=== PATIENT | female | born 1985 | race Caucasian/White ===

== ENCOUNTER 2023-04-26 07:51 | Inpatient (IN) ==
[2023-04-26] MEDS ORDERED: OXYTOCIN 30 UNITS/NSS 30 UNITS/500 ML BAG IV PRN ×3 (07:55→23:04)
[2023-04-26] MEDS ORDERED: LIDOCAINE 1% LOCAL 20 ML VIAL INFIL PRN (07:55)
--- NOTE | 2023-04-26 07:57 | History & Physical Report ---
Date of Service April 26, 2023 Assessment & Plan (1) Supervision of elderly primigravida: (2) Encounter for induction of labor: Plan bulb removed. Plan pitocin induction. arom when indicated. epidural early for patient to tolerate exams. fetus category one. Anticipate . Admission and Anticipated Discharge Date Admission Date: April 26, 2023 History of Present Illness Chief Complaint: iol Primary Care Provider: [facility] Patient is a 37yo with iup at 39 3/7 weeks who presents for iol for concern about stomach. Patient notes good fm, no lof/vb. She had a davidson catheter placed for cervical ripening last night. Patient had a cell free DNA test done and low risk. NOrmal echo. ON low dose asa for pet risks. The stomach looked large on ultrasound here. ON f/u ultrasound with mfm, the stomach looked normal or just slightly enlarged. No evidence of poly or obstruction. and Delivery Plans AMA *Weekly NST's @ 36 wks. Hypothyroid *TSH Q 4 wks. STEFAN at 24 week Flu shot given 03/11/23 - AL Dilated Stomach on US *MFM Consult (03/25/23) - alternating dilated and normal appearing stomach, 3w followup, wkly NST/DVP until then *39wk IOL per MFM OB Labs: Blood Type AB Positive 01/13/23 Antibody Screen NEGATIVE 01/13/23 Hemoglobin 11.8 g/dl (12.0-16.0) L 02/20/23 Hematocrit 34.1 % (37.0-47.0) L 02/20/23 Mean Corpuscular Volume 90.7 fL (80.0-100.0) 02/20/23 Platelet Count 220 K/uL (130-400) 02/20/23 Rubella IgG Antibody Immune (Immune) 01/13/23 Rapid Plasma Reagin Nonreactive (Nonreactive) 01/13/23 Hepatitis B Surface Antigen. NON-REACTIVE (NON-REACTIVE) 01/13/23 Hepatitis C Antibody (EIA) NON-REACTIVE (NON-REACTIVE) 01/13/23 HIV (1&2) Ag and Ab Confirmation NON-REACTIVE (NON-REACTIVE) 01/13/23 Glucose 1 Hour 50 gm Load 114 mg/dl (70-130) 02/09/23 OB Optional Labs: Chlamydia trachomatis RNA Not Detected (NotDetected) 01/13/23 Neisseria gonorrhoeae RNA Not Detected (NotDetected) 01/13/23 Thyroid Stimulating Hormone (TSH) 1.687 uIu/ml (0.300-4.500) 03/29/23 gbs negative. Allergies Allergy/AdvReac Type Severity Reaction Status Date / Time No Known Allergies Allergy Verified 04/25/23 19:33 Home Medications Medication Instructions Recorded Confirmed Type aspirin 81 mg tablet,delayed 81 mg PO DAILY 01/05/23 04/25/23 History release (Adult Low Dose Aspirin) levothyroxine 100 mcg capsule 0 mcg PO DAILY 01/05/23 04/25/23 History vit 168-iron 27 mg-folic 0 cap PO DAILY 01/05/23 04/25/23 History acid 800 mcg-omega3 235 mg capsule (One-A-Day -1) Patient History Medical History Hypothyroidism during No pertinent family history Surgical History No pertinent past surgical history Family History Other Hypertension Social History Smoking Status: Former smoker Do You Dip or Chew Tobacco: No; Hx Alcohol Use: No Hx Substance Use: No Preferred Language: Malay marital status: marital status details: Ladonna (friend) [phone] Current Living Situation: Alone Current Living Situation Comment: grad student current occupational status: 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 Physical Exam Constitutional: WD/WN, vitals as above Gastrointestinal (Abdomen): soft, gravid, nt Psychiatric: A+Ox3, euthymic affect Genitourinary: gentle tug on bulb and removed. cx--2+/75/-2, very difficult exam toco--mics efm--150s with mod variabiltiy, accels to 170s, no decels Coding Level of Care Code None Diagnoses Encounter for supervision of primigravida of advanced maternal age in third trimester O09.513 Trimester: third trimester Encounter for induction of labor Z34.90 (1) Supervision of elderly primigravida Trimester: third trimester Qualified Code(s): O09.513 - Supervision of elderly primigravida, third trimester
[2023-04-26 08:24] LABS: Hematocrit (blood only) 38.5 % (37.0-47.0); Hemoglobin 13.1 g/dl (12.0-16.0); Mean Corpuscular Volume 91.2 fL (80.0-100.0); Mean Platelet Volume 10.7 fL (9.4-12.4); Platelet Count 213 K/uL (130-400); RDW Coefficient of Variation 13.2 % (11.5-14.5); RDW Standard Deviation 43.8 fL (36.4-46.3); Red Blood Count 4.22 M/uL (4.20-5.40); White Blood Count 9.26 K/ul (4.8-10.8)
[2023-04-26] MEDS: LACTATED RINGER'S 1,000 ML IV PRN ×4 (09:30→21:50)
[2023-04-26] MEDS ORDERED: fentANYL 2 MCG/ML BUPIVacaine 0.125%-NSS 100ML BAG ONE (11:11)
[2023-04-26] MEDS ORDERED: ePHEDrine sulfate 50 MG/ML AMP ONE (11:11)
[2023-04-26] MEDS ORDERED: fentaNYL citrate PF 100 MCG/2 ML VIAL ONE (11:11)
[2023-04-26] MEDS ORDERED: SODIUM CHLORIDE 0.9% PF INJ 10 ML VIAL ONE (11:12)
[2023-04-26] MEDS ORDERED: LIDOCAINE 2%/EPINEPHRINE 1:200,000 20 ML PF ONE (11:12)
[2023-04-26] MEDS ORDERED: BUPIVACAINE 0.25% PF 30 ML VIAL ONE (11:12)
--- NOTE | 2023-04-26 11:29 | Anesthesiology Consultation ---
Date of Service April 26, 2023 Assessment & Plan Chart Review Chart Review: Patient NOT seen in Pre Admission Testing and Acceptable Risk for Labor Epidural Consults Requested none ASA ASA2 Proposed Anesthesia Anesthesia Type: Labor Epidural Risk / Benefits Reviewed With: PT / POA / Parent / Guardian, Accepts Plan and Informed Consent Obtained History Height/Weight Height: 5 ft 3 in Weight: 75.296 kg Allergies Allergy/AdvReac Type Severity Reaction Status Date / Time No Known Allergies Allergy Verified 04/26/23 08:42 Medications Home Medications Medication Instructions Recorded Confirmed Last Taken aspirin 81 mg tablet,delayed 81 mg PO DAILY 01/05/23 04/26/23 04/25/23 release (Adult Low Dose Aspirin) levothyroxine 100 mcg capsule 0 mcg PO DAILY 01/05/23 04/26/23 04/25/23 06:00 vit 168-iron 27 mg-folic 0 cap PO DAILY 01/05/23 04/26/23 04/25/23 14:00 acid 800 mcg-omega3 235 mg capsule (One-A-Day -1) Active Medications Generic Name Dose Route Start Last Admin Trade Name Freq PRN Reason Stop Dose Admin Oxytocin 30 units in 500 mls @ 7 mls/hr 04/26/23 07:55 04/26/23 11:00 Pitocin 30 Units/Nss IV 04/28/23 07:54 0.42 units/hr .Q24H PRN 7 mls/hr Labor Induction/Augmentation Titration Protocol 0.42 UNITS/HR Lactated Ringer's 1,000 mls @ 125 mls/hr 04/26/23 07:55 04/26/23 11:10 Lr IV 04/28/23 07:54 999 mls/hr .Q8H PRN Infusion L&D Protocol Protocol NPO Date Last Intake of Fluids: 04/26/23 Time Last Intake of Fluids: 11:00 Date Last Intake of Solids: 04/26/23 Time Last Intake of Solids: 07:00 Past Medical History Medical History No pertinent family history Hypothyroidism during Exercise / Class Metabolic Activity 1 > 8 Run/Swim/Ski/Tennis Past Family History Family History Other Hypertension Past Surgical History Surgical History No pertinent past surgical history Past Anesthesia History No Hx of Anesthesia Complications and No Family Hx of Anesthesia Complications History of PONV No Hx of PONV and No Hx of Motion Sickness Social History Smoking Status: Light tobacco smoker Do You Dip or Chew Tobacco: No Hx Alcohol Use: No Hx Substance Use: No substance use type: does not use Review of Systems ROS Unobtainable: All systems reviewed & are unremarkable except as noted in HPI & below Physical Exam Vital Signs Last Vital Signs Temp 36.8 C 04/26/23 09:40 Pulse 78 04/26/23 10:31 Resp 18 04/26/23 09:40 BP 123/79 04/26/23 10:31 Constitutional no acute distress ENMT Mouth: no TMJ abnormality Thyromental Distance: > or= 3.5 Finger Breadths Mallampati Class: II Neck normal visual inspection and trachea midline; neck extension not limited Respiratory normal respiratory effort Auscultation: lungs clear to auscultation bilaterally Cardiovascular Rate/Rhythm: regular rate and regular rhythm Heart Sounds: no murmur Musculoskeletal Spine: normal cervical ROM Extremities: full ROM of extremities Neurologic moves all extremities Psychiatric Orientation: alert and oriented x 3 Testing Laboratory Results 04/26/23 08:03 Electrocardiogram Findings: no ST @
[2023-04-26] MEDS ORDERED: diphenhydrAMINE 50 MG/ML VIAL IV PRN (11:55)
[2023-04-26] MEDS ORDERED: BUPIVACAINE 0.25% PF 30 ML VIAL EPI STA (11:55)
[2023-04-26] MEDS ORDERED: ePHEDrine sulfate 50 MG/ML AMP IV PRN (11:55)
[2023-04-26] MEDS ORDERED: NALOXONE HCL 1 MG in SODIUM CHLORIDE 0.9% 1,000 ML IV PRN (11:55)
[2023-04-26] MEDS ORDERED: fentaNYL citrate PF 100 MCG/2 ML VIAL EPI PRN (11:55)
[2023-04-26] MEDS ORDERED: LIDOCAINE 2% MPF LOCAL 5 ML VIAL EPI PRN (11:55)
[2023-04-26] MEDS ORDERED: SODIUM CHLORIDE 0.9% PF INJ 10 ML VIAL EPI PRN (11:55)
[2023-04-26] MEDS ORDERED: NALBUPHINE HCL 5 MG in SYRINGE 0 ML IV PRN (11:55)
[2023-04-26] MEDS ORDERED: BUPIVACAINE 0.25% PF 30 ML VIAL EPI PRN (11:55)
[2023-04-26] MEDS ORDERED: fentaNYL citrate PF 100 MCG/2 ML VIAL EPI STA (11:55)
[2023-04-26] MEDS ORDERED: fentANYL 2 MCG/ML BUPIVacaine 0.125%-NSS 100ML BAG EPI PRN (11:55)
[2023-04-26] MEDS ORDERED: LIDOCAINE 2%/EPINEPHRINE 1:200,000 20 ML PF EPI STA (11:55)
[2023-04-26] MEDS ORDERED: NALOXONE HCL 0.4 MG/1 ML VIAL/CARP IV PRN (11:55)
[2023-04-26] MEDS ORDERED: SODIUM CHLORIDE 0.9% PF INJ 10 ML VIAL EPI STA (11:55)
[2023-04-26] MEDS ORDERED: ROPIVACAINE 0.5% PF 5 MG/ML 20 ML VIAL EPI PRN (11:55)
--- NOTE | 2023-04-26 12:54 | Labor Progress Brief Note ---
Date of Service April 26, 2023 Subjective pt comfortable with epidural. aware i am taking over care. Assessment & Plan (1) Encounter for induction of labor: (2) Supervision of elderly primigravida: Trimester: third trimester Qualified Code(s): O09.513 - Supervision of elderly primigravida, third trimester Plan will see how arom helps labor pattern. c/w pitocin. fhts categ 1. Admission and Anticipated Discharge Date Admission Date: April 26, 2023 Physical Exam Genitourinary: Manual OB Exam: + cervical dilation (2-3), + cervical effacement 50%, + station -2 and + amniotic fluid (AROM) clear Results & Data Vital Signs (Past 12 Hours) Vital Signs Temp Pulse Resp BP Pulse Ox 04/26/23 12:49 98 04/26/23 12:49 82 04/26/23 12:47 82 04/26/23 12:47 117/74 04/26/23 12:44 97 04/26/23 12:44 85 04/26/23 12:39 100 04/26/23 12:39 94 H 04/26/23 12:34 100 04/26/23 12:34 81 04/26/23 12:32 84 04/26/23 12:32 116/59 L 04/26/23 12:29 100 04/26/23 12:29 83 04/26/23 12:24 100 04/26/23 12:24 82 04/26/23 12:19 100 04/26/23 12:19 87 04/26/23 12:16 85 04/26/23 12:16 110/64 04/26/23 12:14 99 04/26/23 12:14 93 H 04/26/23 12:09 97 04/26/23 12:09 91 H 04/26/23 12:06 83 04/26/23 12:06 108/61 04/26/23 12:05 80 04/26/23 12:05 105/6 L 04/26/23 12:04 97 04/26/23 12:04 78 04/26/23 12:01 88 04/26/23 12:01 94/57 L 04/26/23 11:59 98 04/26/23 11:59 81 04/26/23 11:58 83 04/26/23 11:58 89/51 L 04/26/23 11:56 102 H 04/26/23 11:56 90/53 L 04/26/23 11:54 99 04/26/23 11:54 112 H 04/26/23 11:53 129 H 04/26/23 11:53 118/65 04/26/23 11:50 90 04/26/23 11:50 80/43 L 04/26/23 11:49 99 04/26/23 11:49 86 04/26/23 11:49 83/45 L 04/26/23 11:46 99 H 04/26/23 11:46 121/66 04/26/23 11:44 99 04/26/23 11:44 100 H 04/26/23 11:44 85 04/26/23 11:44 115/66 04/26/23 11:39 99 04/26/23 11:39 84 04/26/23 11:36 91 04/26/23 11:36 108 H 04/26/23 11:34 100 04/26/23 11:34 86 04/26/23 10:31 78 04/26/23 10:31 123/79 04/26/23 09:41 87 04/26/23 09:41 116/72 04/26/23 09:40 18 04/26/23 09:40 98.2 F 18 04/26/23 08:45 98.2 F 18 04/26/23 08:07 94 H 123/78 04/26/23 08:06 18 04/26/23 08:06 98.2 F 18 Coding Level of Care Code None Diagnoses Encounter for induction of labor Z34.90 Encounter for supervision of primigravida of advanced maternal age in third trimester O09.513 Trimester: third trimester
--- NOTE | 2023-04-26 15:37 | Labor Progress Brief Note ---
Date of Service April 26, 2023 Subjective comfortable with epidural Assessment & Plan (1) Encounter for induction of labor: Plan need to cont to increase pit to improve labor pattern. fhts categ 1. Admission and Anticipated Discharge Date Admission Date: April 26, 2023 Physical Exam Constitutional: WD/WN, vitals as above Genitourinary: Manual OB Exam: + cervical dilation 3 cm, + cervical effacement 50% and + station -2 OB Exam Monitor Tracing: + external FHT monitor used, + external uterine monitor used (q2-4 pit at 15), + category I and + normal FHT variability Results & Data Vital Signs (Past 12 Hours) Vital Signs Temp Pulse Resp BP Pulse Ox 04/26/23 15:34 99 04/26/23 15:34 89 04/26/23 15:32 93 H 04/26/23 15:32 122/79 04/26/23 15:29 99 04/26/23 15:29 98 H 04/26/23 15:24 96 04/26/23 15:24 94 H 04/26/23 15:19 100 04/26/23 15:19 75 04/26/23 15:18 77 04/26/23 15:18 131/74 04/26/23 15:14 98 04/26/23 15:14 88 04/26/23 15:09 100 04/26/23 15:09 80 04/26/23 15:04 99 04/26/23 15:04 81 04/26/23 15:02 86 04/26/23 15:02 127/76 04/26/23 14:59 99 04/26/23 14:59 84 04/26/23 14:54 99 04/26/23 14:54 90 04/26/23 14:49 99 04/26/23 14:49 91 H 04/26/23 14:46 88 04/26/23 14:46 126/84 04/26/23 14:44 100 04/26/23 14:44 93 H 04/26/23 14:39 100 04/26/23 14:39 84 04/26/23 14:34 100 04/26/23 14:34 89 04/26/23 14:31 79 04/26/23 14:31 125/74 04/26/23 14:29 100 04/26/23 14:29 80 04/26/23 14:24 100 04/26/23 14:24 86 04/26/23 14:19 99 04/26/23 14:19 80 04/26/23 14:17 79 04/26/23 14:17 119/64 04/26/23 14:14 99 04/26/23 14:14 79 04/26/23 14:09 97 04/26/23 14:09 85 04/26/23 14:04 98 04/26/23 14:04 81 04/26/23 14:01 16 04/26/23 14:01 98.2 F 16 04/26/23 14:01 76 04/26/23 14:01 121/69 04/26/23 13:59 100 04/26/23 13:59 78 04/26/23 13:54 97 04/26/23 13:54 103 H 04/26/23 13:49 96 04/26/23 13:49 80 04/26/23 13:46 76 04/26/23 13:46 119/66 04/26/23 13:44 96 04/26/23 13:44 76 04/26/23 13:39 96 04/26/23 13:39 75 04/26/23 13:34 97 04/26/23 13:34 74 04/26/23 13:32 71 04/26/23 13:32 117/67 04/26/23 13:29 96 04/26/23 13:29 72 04/26/23 13:24 99 04/26/23 13:24 75 04/26/23 13:19 97 04/26/23 13:19 76 04/26/23 13:17 78 04/26/23 13:17 111/67 04/26/23 13:14 96 04/26/23 13:14 78 04/26/23 13:09 99 04/26/23 13:09 74 04/26/23 13:04 98 04/26/23 13:04 79 04/26/23 13:02 79 04/26/23 13:02 119/68 04/26/23 13:01 18 04/26/23 13:01 98.2 F 18 04/26/23 12:59 100 04/26/23 12:59 81 04/26/23 12:54 98 04/26/23 12:54 81 04/26/23 12:49 98 04/26/23 12:49 82 04/26/23 12:47 82 04/26/23 12:47 117/74 04/26/23 12:44 97 04/26/23 12:44 85 04/26/23 12:39 100 04/26/23 12:39 94 H 04/26/23 12:34 100 04/26/23 12:34 81 04/26/23 12:32 84 04/26/23 12:32 116/59 L 04/26/23 12:29 100 04/26/23 12:29 83 04/26/23 12:24 100 04/26/23 12:24 82 04/26/23 12:19 100 04/26/23 12:19 87 04/26/23 12:16 85 04/26/23 12:16 110/64 04/26/23 12:14 99 04/26/23 12:14 93 H 04/26/23 12:09 97 04/26/23 12:09 91 H 04/26/23 12:06 83 04/26/23 12:06 108/61 04/26/23 12:05 80 04/26/23 12:05 105/6 L 04/26/23 12:04 97 04/26/23 12:04 78 04/26/23 12:01 88 04/26/23 12:01 94/57 L 04/26/23 11:59 98 04/26/23 11:59 81 04/26/23 11:58 83 04/26/23 11:58 89/51 L 04/26/23 11:56 102 H 04/26/23 11:56 90/53 L 04/26/23 11:54 99 04/26/23 11:54 112 H 04/26/23 11:53 129 H 04/26/23 11:53 118/65 04/26/23 11:50 90 04/26/23 11:50 80/43 L 04/26/23 11:49 99 04/26/23 11:49 86 04/26/23 11:49 83/45 L 04/26/23 11:46 99 H 04/26/23 11:46 121/66 04/26/23 11:44 99 04/26/23 11:44 100 H 04/26/23 11:44 85 04/26/23 11:44 115/66 04/26/23 11:39 99 04/26/23 11:39 84 04/26/23 11:36 91 04/26/23 11:36 108 H 04/26/23 11:34 100 04/26/23 11:34 86 04/26/23 10:31 78 04/26/23 10:31 123/79 04/26/23 09:41 87 04/26/23 09:41 116/72 04/26/23 09:40 18 04/26/23 09:40 98.2 F 18 04/26/23 08:45 98.2 F 18 04/26/23 08:07 94 H 123/78 04/26/23 08:06 18 04/26/23 08:06 98.2 F 18 Coding Level of Care Code None Diagnoses Encounter for induction of labor Z34.90
[2023-04-26] MEDS ORDERED: NURSING L&D Epidural Breakthrough Pain Update ONE (16:48)
--- NOTE | 2023-04-26 20:26 | Labor Progress Brief Note ---
Date of Service April 26, 2023 Subjective pt examined around 730pm, feeling rectal pressure Assessment & Plan (1) Encounter for induction of labor: Plan begin 2nd stage. fhts categ 1 Admission and Anticipated Discharge Date Admission Date: April 26, 2023 Physical Exam Genitourinary: Manual OB Exam: + cervical dilation 10 cm, + cervical effacement 100% and + station + 2 OB Exam Monitor Tracing: + external FHT monitor used, + external uterine monitor used (difficult to see pattern due to positioning), + category I and + normal FHT variability Results & Data Vital Signs (Past 12 Hours) Vital Signs Temp Pulse Resp BP Pulse Ox O2 Del Method 04/26/23 20:22 88 L 04/26/23 20:22 103 H 04/26/23 20:20 98 04/26/23 20:20 110 H 04/26/23 20:15 99 04/26/23 20:15 123 H 04/26/23 20:11 102 H 04/26/23 20:11 130/75 04/26/23 20:10 100 04/26/23 20:10 104 H 04/26/23 20:05 96 04/26/23 20:05 104 H 04/26/23 20:00 20 04/26/23 20:00 20 04/26/23 20:00 99 04/26/23 20:00 108 H 04/26/23 19:56 109 H 04/26/23 19:56 125/79 04/26/23 19:55 100 04/26/23 19:55 102 H 04/26/23 19:50 99 04/26/23 19:50 100 H 04/26/23 19:45 100 04/26/23 19:45 105 H 04/26/23 19:41 92 H 04/26/23 19:41 114/57 L 04/26/23 19:40 98 04/26/23 19:40 87 04/26/23 19:35 99 04/26/23 19:35 93 H 04/26/23 19:30 100 04/26/23 19:30 97 H 04/26/23 19:26 120 H 04/26/23 19:26 119/62 04/26/23 19:25 99 04/26/23 19:25 118 H 04/26/23 19:20 99 04/26/23 19:20 100 H 04/26/23 19:15 Room Air 04/26/23 19:15 100 04/26/23 19:15 102 H 04/26/23 19:10 18 04/26/23 19:10 98.1 F 18 04/26/23 19:10 100 04/26/23 19:10 96 H 04/26/23 19:10 100 H 04/26/23 19:10 131/78 04/26/23 19:07 101 H 04/26/23 19:07 171/125 H 04/26/23 19:05 99 04/26/23 19:05 91 H 04/26/23 19:00 98 04/26/23 19:00 91 H 04/26/23 18:55 99 04/26/23 18:55 97 H 04/26/23 18:50 100 04/26/23 18:50 85 04/26/23 18:47 88 04/26/23 18:47 125/84 04/26/23 18:45 99 04/26/23 18:45 90 04/26/23 18:40 99 04/26/23 18:40 96 H 04/26/23 18:35 100 04/26/23 18:35 88 04/26/23 18:32 203 H 04/26/23 18:32 135/93 04/26/23 18:30 100 04/26/23 18:30 90 04/26/23 18:24 99 04/26/23 18:24 94 H 04/26/23 18:19 99 04/26/23 18:19 84 04/26/23 18:17 81 04/26/23 18:17 121/66 04/26/23 18:14 100 04/26/23 18:14 80 04/26/23 18:09 100 04/26/23 18:09 86 04/26/23 18:04 100 04/26/23 18:04 82 04/26/23 18:02 83 04/26/23 18:02 126/73 04/26/23 18:00 18 04/26/23 18:00 98.2 F 18 04/26/23 17:59 99 04/26/23 17:59 81 04/26/23 17:54 100 04/26/23 17:54 76 04/26/23 17:49 99 12/18/23 17:49 79 04/26/23 17:49 131/58 L 04/26/23 17:48 92 04/26/23 17:48 81 04/26/23 17:44 100 04/26/23 17:44 85 04/26/23 17:39 100 04/26/23 17:39 84 04/26/23 17:34 100 04/26/23 17:34 73 04/26/23 17:31 82 04/26/23 17:31 113/67 04/26/23 17:29 100 04/26/23 17:29 81 04/26/23 17:26 77 04/26/23 17:26 117/66 04/26/23 17:24 99 04/26/23 17:24 81 04/26/23 17:19 98 04/26/23 17:19 84 04/26/23 17:18 93 H 04/26/23 17:18 144/116 H 04/26/23 17:14 94 04/26/23 17:14 71 04/26/23 17:09 96 04/26/23 17:09 91 H 04/26/23 17:04 100 04/26/23 17:04 78 04/26/23 17:03 89 04/26/23 17:03 118/58 L 04/26/23 16:59 99 04/26/23 16:59 75 04/26/23 16:54 97 04/26/23 16:54 78 04/26/23 16:49 97 04/26/23 16:49 80 04/26/23 16:47 74 04/26/23 16:47 109/56 L 04/26/23 16:44 18 04/26/23 16:44 98.2 F 18 04/26/23 16:44 96 04/26/23 16:44 76 04/26/23 16:39 96 04/26/23 16:39 80 04/26/23 16:34 98 04/26/23 16:34 78 04/26/23 16:31 77 04/26/23 16:31 115/60 04/26/23 16:29 97 04/26/23 16:29 89 04/26/23 16:24 99 04/26/23 16:24 82 04/26/23 16:19 99 04/26/23 16:19 77 04/26/23 16:17 77 04/26/23 16:17 117/56 L 04/26/23 16:14 98 04/26/23 16:14 91 H 04/26/23 16:09 98 04/26/23 16:09 93 H 04/26/23 16:04 98 04/26/23 16:04 109 H 04/26/23 16:01 90 04/26/23 16:01 129/79 04/26/23 15:59 98 04/26/23 15:59 97 H 04/26/23 15:54 99 04/26/23 15:54 93 H 04/26/23 15:49 98 04/26/23 15:49 89 04/26/23 15:47 80 04/26/23 15:47 129/74 04/26/23 15:44 99 04/26/23 15:44 85 04/26/23 15:39 98 04/26/23 15:39 90 04/26/23 15:34 99 04/26/23 15:34 89 04/26/23 15:32 93 H 04/26/23 15:32 122/79 04/26/23 15:29 99 04/26/23 15:29 98 H 04/26/23 15:24 96 04/26/23 15:24 94 H 04/26/23 15:19 100 04/26/23 15:19 75 04/26/23 15:18 77 04/26/23 15:18 131/74 04/26/23 15:14 98 04/26/23 15:14 88 04/26/23 15:10 18 04/26/23 15:10 98.2 F 18 04/26/23 15:09 100 04/26/23 15:09 80 04/26/23 15:04 99 04/26/23 15:04 81 04/26/23 15:02 86 04/26/23 15:02 127/76 04/26/23 14:59 99 04/26/23 14:59 84 04/26/23 14:54 99 04/26/23 14:54 90 04/26/23 14:49 99 04/26/23 14:49 91 H 04/26/23 14:46 88 04/26/23 14:46 126/84 04/26/23 14:44 100 04/26/23 14:44 93 H 04/26/23 14:39 100 04/26/23 14:39 84 04/26/23 14:34 100 04/26/23 14:34 89 04/26/23 14:31 79 04/26/23 14:31 125/74 04/26/23 14:29 100 04/26/23 14:29 80 04/26/23 14:24 100 04/26/23 14:24 86 04/26/23 14:19 99 04/26/23 14:19 80 04/26/23 14:17 79 04/26/23 14:17 119/64 04/26/23 14:14 99 04/26/23 14:14 79 04/26/23 14:09 97 04/26/23 14:09 85 04/26/23 14:04 98 04/26/23 14:04 81 04/26/23 14:01 16 04/26/23 14:01 98.2 F 16 04/26/23 14:01 76 04/26/23 14:01 121/69 04/26/23 13:59 100 04/26/23 13:59 78 04/26/23 13:54 97 04/26/23 13:54 103 H 04/26/23 13:49 96 04/26/23 13:49 80 04/26/23 13:46 76 04/26/23 13:46 119/66 04/26/23 13:44 96 04/26/23 13:44 76 04/26/23 13:39 96 04/26/23 13:39 75 04/26/23 13:34 97 04/26/23 13:34 74 04/26/23 13:32 71 04/26/23 13:32 117/67 04/26/23 13:29 96 04/26/23 13:29 72 04/26/23 13:24 99 04/26/23 13:24 75 04/26/23 13:19 97 04/26/23 13:19 76 04/26/23 13:17 78 04/26/23 13:17 111/67 04/26/23 13:14 96 04/26/23 13:14 78 04/26/23 13:09 99 04/26/23 13:09 74 04/26/23 13:04 98 04/26/23 13:04 79 04/26/23 13:02 79 04/26/23 13:02 119/68 04/26/23 13:01 18 04/26/23 13:01 98.2 F 18 04/26/23 12:59 100 04/26/23 12:59 81 04/26/23 12:54 98 04/26/23 12:54 81 04/26/23 12:49 98 04/26/23 12:49 82 04/26/23 12:47 82 04/26/23 12:47 117/74 04/26/23 12:44 97 04/26/23 12:44 85 04/26/23 12:39 100 04/26/23 12:39 94 H 04/26/23 12:34 100 04/26/23 12:34 81 04/26/23 12:32 84 04/26/23 12:32 116/59 L 04/26/23 12:29 100 04/26/23 12:29 83 04/26/23 12:24 100 04/26/23 12:24 82 04/26/23 12:19 100 04/26/23 12:19 87 04/26/23 12:16 85 04/26/23 12:16 110/64 04/26/23 12:14 99 04/26/23 12:14 93 H 04/26/23 12:09 97 04/26/23 12:09 91 H 04/26/23 12:06 83 04/26/23 12:06 108/61 04/26/23 12:05 80 04/26/23 12:05 105/6 L 04/26/23 12:04 97 04/26/23 12:04 78 04/26/23 12:01 88 04/26/23 12:01 94/57 L 04/26/23 11:59 98 04/26/23 11:59 81 04/26/23 11:58 83 04/26/23 11:58 89/51 L 04/26/23 11:56 102 H 04/26/23 11:56 90/53 L 04/26/23 11:54 99 04/26/23 11:54 112 H 04/26/23 11:53 129 H 04/26/23 11:53 118/65 04/26/23 11:50 90 04/26/23 11:50 80/43 L 04/26/23 11:49 99 04/26/23 11:49 86 04/26/23 11:49 83/45 L 04/26/23 11:46 99 H 04/26/23 11:46 121/66 04/26/23 11:44 99 04/26/23 11:44 100 H 04/26/23 11:44 85 04/26/23 11:44 115/66 04/26/23 11:39 99 04/26/23 11:39 84 04/26/23 11:36 91 04/26/23 11:36 108 H 04/26/23 11:34 100 04/26/23 11:34 86 04/26/23 10:31 78 04/26/23 10:31 123/79 04/26/23 09:41 87 04/26/23 09:41 116/72 04/26/23 09:40 18 04/26/23 09:40 98.2 F 18 04/26/23 08:45 98.2 F 18 Coding Level of Care Code None Diagnoses Encounter for induction of labor Z34.90
--- NOTE | 2023-04-26 22:51 | Delivery Summary ---
Vaginal Delivery Summary Date of Service April 26, 2023 Vaginal Delivery Summary VAVD and 3rd Degree LAC Patient had begun the 2nd stage and brought baby to +3 station. I was called to bedside due to fhts 170s. Long ctx, with variables that resolved by end of contraction but then tachycardia. After pushing with patient for about 10-15min the fhts baseline improved to 160s with good variability, variable decels, not deep and so allowed to continue in 2nd stage. After further pushing to , the fhts returned to 170s baseline with deeper decels and recommended to patient to proceed with outlet vacuum assistance. Bladder drained for 300cc under sterile conditions. Over one contraction with 2 pulls and no pop offs, cephalic delivered with effective maternal expulsive efforts as VAVD, a viable female Apgars 7 and 9 over 3rd degree perineal laceration. Shoulders and body rapidly delivered with ease. Infant was vigorous and crying at . Cord clamped at 20 seconds of life and to maternal abdomen where the cord was then doubly clamped and cut. Placenta delivered spontaneously and intact, three-vessel cord. Hemostasis achieved with dilute pitocin and uterine massage. Laceration repaired in multiple layers with 2-0 and 3-0 vicryl. Rectal neg for sutures. Cervix and sulci intact. EBL 300 cc. Mother and baby stable in recovery. Placenta, cord blood and cord gases sent. [facility] [place] Charge Delivery Type Details: VAVD and 3rd Degree LAC
[2023-04-26] MEDS ORDERED: BENZOCAINE 20% SPRY 85 APPLN/85 GM CAN EXT PRN (23:04)
[2023-04-26] MEDS ORDERED: HYDROCORTISONE ACETATE 25 MG SUPP PR PRN (23:04)
[2023-04-26] MEDS ORDERED: bisacodyL 10 MG SUPP PR PRN (23:04)
[2023-04-26] MEDS ORDERED: DIPHTHERIA/TETANUS/PERTUSSIS Vaccine (Tdap, Age 7+yrs) 0.5mL SYR/VL IM ONE (23:04)
[2023-04-26] MEDS ORDERED: ACETAMINOPHEN 325 MG TAB PO PRN (23:04)
[2023-04-26 23:07] LABS: Base Excess Cord Arterial Bld -10.3 mEq/L (-9-1.8); Base Excess Cord Venous Blood -8.3 mEq/L (-7.7-1.9); CO2 Cord Arterial Blood 59 mmHg (39.1-73.5); Cord Venous Blood HCO3 20 mmol/L (18.4-26.8); Cord Venous Blood PCO2 48 mmHg (30.4-57.2); Cord Venous Blood PO2 22 mmHg (14.1-43.3); Cord Venous Blood pH 7.22 (7.20-7.44); HCO3 Cord Arterial Blood 20 mmol/L (19.7-28.5); O2 Saturation Cord Venous Bld < 60.0 % (<68); Oxygen Sat Cord Arterial Blood < 60.0 % (<60); PO2 Cord Arterial Blood 21 mmHg (4.1-31.7); pH Cord Arterial Blood 7.13 (7.1-7.38)
[2023-04-26] MEDS: OXYTOCIN 20 UNITS/LR 1,002 ML IV SCH (23:38)
[2023-04-27] MEDS: IBUPROFEN 600 MG TAB PO PRN ×4 (00:14→23:33)
--- NOTE | 2023-04-27 05:49 | Obstetrical Progress Note ---
Date of Service April 27, 2023 Assessment & Plan (1) Encounter for care and examination after delivery: Plan: -Pt doing well clinically -Vital signs reviewed and WNL -HGB reviewed -Blood type AB+ -Rubella immune -Encourage ambulation -Monitor and control pain with Motrin prn -Monitor lochia -Encourage Admission and Anticipated Discharge Date Admission Date: April 26, 2023 Supervising Physician Co-Signing Physician Notes Resident Physician Supervision Note: I interviewed and examined the patient. Discussed with Dr. Madsen and agree with findings and plan as documented in the note. Any exceptions or clarifications are listed here: pt doing well, eating, voiding, ambulating, no pain issues. no bm yet and enc to take colace due to laceration. abd soft ff 2 down nt, ext nt calves. ppd#1 s/p VAVD, stable doing well, routine care. rhpos/RI/breast feeding. Documented By: Elma Olmstead MD, FACOG Subjective 37 yo post- day 1 s/p Ambulation: ambulating normally Voiding: no voiding problems Passing Gas:: Yes Diet Tolerance:: regular diet Lochia:: Small Feeding Type: bottle feeding Current Pain Level: minimal Resting comfortably this AM in NAD. Denies GRIFFITH, CP, SOB, N/V/D, LE pain/swelling. Review of Systems Review of Systems: All systems reviewed & are unremarkable except as noted in HPI & below Physical Exam Physical Exam: General: patient resting comfortably, NAD, non-toxic in appearance, AA&O x 4, answers questions appropriately. Skin: warm, dry, intact HEENT: NC/AT, anicteric sclera, conjunctiva without injection, moist mucus membranes. Heart: +S1/S2, regular, no m/r/g Lungs: equal air entry bilaterally, no rales/rhonchi/wheezes Abd: +BS, soft, NT/ND, uterine fundus firm at umbilicus Ext: warm, no clubbing/cyanosis or edema, Temi's neg. Neuro: nonfocal, patient AA&O x 4, speech intact, no facial droop, moving all extremities on command. Results & Data Vital Signs (Past 12 Hours) Vital Signs Temp Pulse Pulse Resp BP BP Pulse Ox 04/27/23 04:25 36.5 C 83 18 114/73 97 12/19/23 01:12 36.7 C 88 18 131/75 98 04/27/23 00:36 141 H 131/67 04/27/23 00:35 18 04/27/23 00:20 142 H 133/79 04/27/23 00:06 117 H 134/67 04/27/23 00:05 18 04/26/23 23:36 142 H 04/26/23 23:36 108/59 L 04/26/23 23:35 20 04/26/23 23:21 97 H 04/26/23 23:21 108/58 L 04/26/23 23:20 18 04/26/23 23:13 98 H 04/26/23 23:13 102/55 L 04/26/23 23:06 126 H 04/26/23 23:06 115/63 04/26/23 23:05 18 04/26/23 22:51 127 H 04/26/23 22:51 143/64 H 04/26/23 22:50 20 04/26/23 22:36 98 04/26/23 22:36 111 H 04/26/23 22:36 135/67 04/26/23 22:35 18 04/26/23 22:31 97 04/26/23 22:31 108 H 04/26/23 22:26 96 04/26/23 22:26 119 H 04/26/23 22:21 97 04/26/23 22:21 115 H 04/26/23 22:16 98 04/26/23 22:16 116 H 04/26/23 22:11 97 04/26/23 22:11 131 H 04/26/23 22:06 98 04/26/23 22:06 107 H 04/26/23 22:02 84 L 04/26/23 22:02 124 H 04/26/23 22:01 96 04/26/23 22:01 121 H 04/26/23 22:00 20 04/26/23 22:00 20 04/26/23 21:56 97 04/26/23 21:56 117 H 04/26/23 21:56 118 H 04/26/23 21:56 138/70 04/26/23 21:51 93 04/26/23 21:51 148 H 04/26/23 21:46 80 L 04/26/23 21:46 128 H 04/26/23 21:42 111 H 04/26/23 21:42 141/74 H 04/26/23 21:41 96 04/26/23 21:41 146 H 04/26/23 21:36 90 04/26/23 21:36 131 H 04/26/23 21:31 99 04/26/23 21:31 112 H 04/26/23 21:30 20 04/26/23 21:30 20 04/26/23 21:29 87 L 04/26/23 21:29 107 H 04/26/23 21:28 110 H 04/26/23 21:28 142/66 H 04/26/23 21:26 96 04/26/23 21:26 119 H 04/26/23 21:24 82 L 04/26/23 21:24 102 H 04/26/23 21:21 98 04/26/23 21:21 109 H 04/26/23 21:19 87 L 04/26/23 21:19 106 H 04/26/23 21:16 98 04/26/23 21:16 117 H 04/26/23 21:13 122 H 04/26/23 21:13 144/85 H 04/26/23 21:11 98 04/26/23 21:11 114 H 04/26/23 21:06 98 04/26/23 21:06 124 H 04/26/23 21:01 97 04/26/23 21:01 120 H 04/26/23 21:00 18 04/26/23 21:00 18 04/26/23 20:58 104 H 04/26/23 20:58 142/65 H 04/26/23 20:56 98 04/26/23 20:56 108 H 04/26/23 20:56 36.8 C 04/26/23 20:55 83 L 04/26/23 20:55 112 H 04/26/23 20:51 98 04/26/23 20:51 109 H 04/26/23 20:48 81 L 04/26/23 20:48 108 H 04/26/23 20:46 97 04/26/23 20:46 123 H 04/26/23 20:42 113 H 04/26/23 20:42 149/65 H 04/26/23 20:41 100 04/26/23 20:41 121 H 04/26/23 20:41 81 L 04/26/23 20:41 96 H 04/26/23 20:36 96 04/26/23 20:36 116 H 04/26/23 20:33 74 L 04/26/23 20:33 114 H 04/26/23 20:31 99 04/26/23 20:31 102 H 04/26/23 20:30 18 04/26/23 20:30 18 04/26/23 20:28 89 L 04/26/23 20:28 104 H 04/26/23 20:27 109 H 04/26/23 20:27 140/79 04/26/23 20:25 99 04/26/23 20:25 124 H 04/26/23 20:22 88 L 04/26/23 20:22 103 H 04/26/23 20:20 98 04/26/23 20:20 110 H 04/26/23 20:15 99 04/26/23 20:15 123 H 04/26/23 20:11 102 H 04/26/23 20:11 130/75 04/26/23 20:10 100 04/26/23 20:10 104 H 04/26/23 20:05 96 04/26/23 20:05 104 H 04/26/23 20:00 20 04/26/23 20:00 20 04/26/23 20:00 99 04/26/23 20:00 108 H 04/26/23 19:56 109 H 04/26/23 19:56 125/79 04/26/23 19:55 100 04/26/23 19:55 102 H 04/26/23 19:50 99 04/26/23 19:50 100 H 04/26/23 19:45 100 04/26/23 19:45 105 H 04/26/23 19:41 92 H 04/26/23 19:41 114/57 L 04/26/23 19:40 98 04/26/23 19:40 87 04/26/23 19:35 99 18 19:35 93 H 04/26/23 19:30 100 04/26/23 19:30 97 H 04/26/23 19:26 120 H 04/26/23 19:26 119/62 12/18/23 19:25 99 04/26/23 19:25 118 H 04/26/23 19:20 99 04/26/23 19:20 100 H 04/26/23 19:15 04/26/23 19:15 100 04/26/23 19:15 102 H 04/26/23 19:10 18 04/26/23 19:10 36.7 C 18 04/26/23 19:10 100 04/26/23 19:10 96 H 04/26/23 19:10 100 H 04/26/23 19:10 131/78 04/26/23 19:07 101 H 04/26/23 19:07 171/125 H 04/26/23 19:05 99 04/26/23 19:05 91 H 04/26/23 19:00 98 04/26/23 19:00 91 H 04/26/23 18:55 99 04/26/23 18:55 97 H 04/26/23 18:50 100 04/26/23 18:50 85 04/26/23 18:47 88 04/26/23 18:47 125/84 04/26/23 18:45 99 04/26/23 18:45 90 04/26/23 18:40 99 04/26/23 18:40 96 H 04/26/23 18:35 100 04/26/23 18:35 88 04/26/23 18:32 203 H 04/26/23 18:32 135/93 04/26/23 18:30 100 04/26/23 18:30 90 04/26/23 18:24 99 04/26/23 18:24 94 H 04/26/23 18:19 99 04/26/23 18:19 84 04/26/23 18:17 81 04/26/23 18:17 121/66 04/26/23 18:14 100 04/26/23 18:14 80 04/26/23 18:09 100 04/26/23 18:09 86 04/26/23 18:04 100 04/26/23 18:04 82 04/26/23 18:02 83 04/26/23 18:02 126/73 04/26/23 18:00 18 04/26/23 18:00 36.8 C 18 04/26/23 17:59 99 12/18/23 17:59 81 04/26/23 17:54 100 04/26/23 17:54 76 O2 Del Method 04/27/23 04:25 Room Air 04/27/23 01:12 Room Air 04/27/23 00:36 04/27/23 00:35 04/27/23 00:20 04/27/23 00:06 04/27/23 00:05 04/26/23 23:36 04/26/23 23:36 04/26/23 23:35 04/26/23 23:21 04/26/23 23:21 04/26/23 23:20 04/26/23 23:13 04/26/23 23:13 04/26/23 23:06 04/26/23 23:06 04/26/23 23:05 04/26/23 22:51 04/26/23 22:51 04/26/23 22:50 04/26/23 22:36 04/26/23 22:36 04/26/23 22:36 04/26/23 22:35 04/26/23 22:31 04/26/23 22:31 04/26/23 22:26 04/26/23 22:26 04/26/23 22:21 04/26/23 22:21 04/26/23 22:16 04/26/23 22:16 04/26/23 22:11 04/26/23 22:11 04/26/23 22:06 04/26/23 22:06 04/26/23 22:02 04/26/23 22:02 04/26/23 22:01 04/26/23 22:01 04/26/23 22:00 04/26/23 22:00 04/26/23 21:56 04/26/23 21:56 04/26/23 21:56 04/26/23 21:56 04/26/23 21:51 04/26/23 21:51 04/26/23 21:46 04/26/23 21:46 04/26/23 21:42 04/26/23 21:42 04/26/23 21:41 04/26/23 21:41 04/26/23 21:36 04/26/23 21:36 04/26/23 21:31 04/26/23 21:31 04/26/23 21:30 04/26/23 21:30 04/26/23 21:29 04/26/23 21:29 04/26/23 21:28 04/26/23 21:28 04/26/23 21:26 04/26/23 21:26 04/26/23 21:24 04/26/23 21:24 04/26/23 21:21 04/26/23 21:21 04/26/23 21:19 04/26/23 21:19 04/26/23 21:16 04/26/23 21:16 04/26/23 21:13 04/26/23 21:13 04/26/23 21:11 04/26/23 21:11 04/26/23 21:06 04/26/23 21:06 04/26/23 21:01 04/26/23 21:01 04/26/23 21:00 04/26/23 21:00 04/26/23 20:58 04/26/23 20:58 04/26/23 20:56 04/26/23 20:56 04/26/23 20:56 04/26/23 20:55 04/26/23 20:55 04/26/23 20:51 04/26/23 20:51 04/26/23 20:48 04/26/23 20:48 04/26/23 20:46 04/26/23 20:46 04/26/23 20:42 04/26/23 20:42 04/26/23 20:41 04/26/23 20:41 04/26/23 20:41 04/26/23 20:41 04/26/23 20:36 04/26/23 20:36 04/26/23 20:33 04/26/23 20:33 04/26/23 20:31 04/26/23 20:31 04/26/23 20:30 04/26/23 20:30 04/26/23 20:28 04/26/23 20:28 04/26/23 20:27 04/26/23 20:27 04/26/23 20:25 04/26/23 20:25 04/26/23 20:22 04/26/23 20:22 04/26/23 20:20 04/26/23 20:20 04/26/23 20:15 04/26/23 20:15 04/26/23 20:11 04/26/23 20:11 04/26/23 20:10 04/26/23 20:10 04/26/23 20:05 04/26/23 20:05 04/26/23 20:00 04/26/23 20:00 04/26/23 20:00 04/26/23 20:00 04/26/23 19:56 04/26/23 19:56 04/26/23 19:55 04/26/23 19:55 04/26/23 19:50 04/26/23 19:50 04/26/23 19:45 04/26/23 19:45 04/26/23 19:41 04/26/23 19:41 04/26/23 19:40 04/26/23 19:40 04/26/23 19:35 04/26/23 19:35 04/26/23 19:30 04/26/23 19:30 04/26/23 19:26 04/26/23 19:26 04/26/23 19:25 04/26/23 19:25 04/26/23 19:20 04/26/23 19:20 04/26/23 19:15 Room Air 04/26/23 19:15 04/26/23 19:15 04/26/23 19:10 04/26/23 19:10 04/26/23 19:10 04/26/23 19:10 04/26/23 19:10 04/26/23 19:10 04/26/23 19:07 04/26/23 19:07 04/26/23 19:05 04/26/23 19:05 04/26/23 19:00 04/26/23 19:00 04/26/23 18:55 04/26/23 18:55 04/26/23 18:50 04/26/23 18:50 04/26/23 18:47 04/26/23 18:47 04/26/23 18:45 04/26/23 18:45 04/26/23 18:40 04/26/23 18:40 04/26/23 18:35 04/26/23 18:35 04/26/23 18:32 04/26/23 18:32 04/26/23 18:30 04/26/23 18:30 04/26/23 18:24 04/26/23 18:24 04/26/23 18:19 04/26/23 18:19 04/26/23 18:17 04/26/23 18:17 04/26/23 18:14 04/26/23 18:14 04/26/23 18:09 04/26/23 18:09 04/26/23 18:04 04/26/23 18:04 04/26/23 18:02 04/26/23 18:02 04/26/23 18:00 04/26/23 18:00 04/26/23 17:59 04/26/23 17:59 04/26/23 17:54 04/26/23 17:54 Resident Activity Tracking Resident Involvement: Resident Care Provided Care Provided: OB Delivery
[2023-04-27] MEDS: LEVOTHYROXINE SODIUM 100 MCG TABLET PO SCH (07:19)
--- NOTE | 2023-04-27 08:07 | Anesthesia Procedure Note ---
Date of Service April 27, 2023 Anesthesia Post Epidural Note Vital Signs Vital Signs: Temp Pulse Resp BP Pulse Ox O2 Del Method 97.7 F 83 18 114/73 97 Room Air 04/27/23 04:25 04/27/23 04:25 04/27/23 04:25 04/27/23 04:25 04/27/23 04:25 04/27/23 04:25 Pain Intensity Episiotomy/Laceration: Pain Intensity: 2 Notes Mental Status: alert / awake / arousable and participated in evaluation Nausea / Vomiting: adequately controlled Pain: adequately controlled Airway Patency, RR, SpO2: stable & adequate BP & HR: stable & adequate Hydration State: stable & adequate Neuraxial Anesthesia: was administered and sensory block is resolving Anesthetic Complications: no major complications apparent and Pt Satisfied with anesthetic care Epidural: Removed without complications and With tip intact
[2023-04-27] MEDS: PRENATAL VITAMIN 1 TAB PO SCH (09:26)
[2023-04-27] MEDS: DOCUSATE SODIUM 100 MG CAP PO SCH ×2 (09:26→19:51)
[2023-04-27] MEDS: OXYTOCIN 20 UNITS/LR 1,002 ML IV SCH (19:16)
[2023-04-27] MEDS: oxyCODONE/ACETAMINOPHEN 5mg/325mg TAB PO PRN (23:34)
--- NOTE | 2023-04-28 05:54 | Obstetrical Progress Note ---
Date of Service April 28, 2023 Assessment & Plan (1) Encounter for care and examination after delivery: Plan: -Pt doing well clinically -Vital signs reviewed and WNL -HGB reviewed -Blood type AB+ -Rubella immune -Encourage ambulation -Monitor and control pain with Motrin prn -Monitor lochia -Encourage Admission and Anticipated Discharge Date Admission Date: April 26, 2023 Supervising Physician Co-Signing Physician Notes Resident Physician Supervision Note: I was present with Dr. Jaime during the history and exam. I discussed the case with the resident and agree with the findings and plan as documented in the note. Any exceptions or clarifications are listed here: [None] Documented By: Naomi Childress MD, FACOG Subjective 37 yo post- day 2 s/p VAVD Ambulation: ambulating normally Voiding: no voiding problems Passing Gas:: Yes Diet Tolerance:: regular diet Lochia:: Small Feeding Type: bottle feeding and Current Pain Level: minimal Resting comfortably this AM in NAD. Denies GRIFFITH, CP, SOB, N/V/D, LE pain/swelling. Review of Systems Review of Systems: All systems reviewed & are unremarkable except as noted in HPI & below Physical Exam Physical Exam: General: patient resting comfortably, NAD, non-toxic in appearance, AA&O x 4, answers questions appropriately. Skin: warm, dry, intact HEENT: NC/AT, anicteric sclera, conjunctiva without injection, moist mucus membranes. Heart: +S1/S2, regular, no m/r/g Lungs: equal air entry bilaterally, no rales/rhonchi/wheezes Abd: +BS, soft, NT/ND, uterine fundus firm at umbilicus Ext: warm, no clubbing/cyanosis or edema, Temi's neg. Neuro: nonfocal, patient AA&O x 4, speech intact, no facial droop, moving all extremities on command. Results & Data Vital Signs (Past 12 Hours) Vital Signs Temp Pulse Resp BP Pulse Ox O2 Del Method 04/27/23 23:30 36.5 C 94 H 18 149/78 H 04/27/23 20:05 36.7 C 108 H 20 135/80 98 Room Air Resident Activity Tracking Resident Involvement: Resident Care Provided Care Provided: OB Delivery
[2023-04-28] MEDS: LEVOTHYROXINE SODIUM 100 MCG TABLET PO SCH (07:11)
[2023-04-28] MEDS: IBUPROFEN 600 MG TAB PO PRN (08:15)
[2023-04-28] MEDS: PRENATAL VITAMIN 1 TAB PO SCH (08:16)
[2023-04-28] MEDS: oxyCODONE/ACETAMINOPHEN 5mg/325mg TAB PO PRN (08:16)
[2023-04-28] MEDS: DOCUSATE SODIUM 100 MG CAP PO SCH (08:16)
[2023-04-28] MEDS ORDERED: SENNA 8.6 MG TAB PO SCH (09:00)
== END 2023-04-28 17:15 | disposition home or self-care (01) | DRG 768 ==
LOC: 4S1 07:51 → 4E2 04-27 01:13